=== PATIENT | male | born 1960 | race Caucasian/White ===

== ENCOUNTER 2024-05-20 12:02 | Inpatient (IN) | payer OTHER, SELFPAY ==
[2024-05-20 12:14] VITALS: BP 123/78; PULSE 62; RESP 16; TEMP 36.9; O2SAT 98; BMI 25.1
[2024-05-20 12:54] VITALS: RESP 14
[2024-05-20 12:59] LABS: Appearance Urine Clear; Color Urine Yellow; Glucose Urine UA Negative (Negative); Leukocyte Esterase Urine Trace (Negative); Nitrite Urine Negative (Negative); Specific Gravity - Urine 1.015 (1.005-1.025); UMIC TRIGGER UACC YES; Urine Blood Moderate (2+) (Negative); Urine Ketones Negative (Negative); Urine Protein Negative (Neg-Trace)
[2024-05-20 13:01] LABS: Bacteria Urine None Seen (None Seen); Hyaline Casts Urine 0-2 /LPF (0-2); RBC Urine >20 /HPF (0-2); Squamous Epithelial Cell Urine 0-2 /HPF (0-2); WBC Urine 0-5 /HPF (0-5)
--- NOTE | 2024-05-20 13:01 | PC.NURSE ---
Patient comes in via EMS on a section 12. Per EMS, patient was brought to the court today from [facility] to determine if he could be committed, the diving judge determined the patient could not be committed so he was subsequently discharged from [facility]. Pt was then placed on a section 12 for transport here because staff felt he was unsafe to be in the community. Patient is not alert and oriented, he was only oriented to his name, no this birthday, location or situation. he reports to this RN that Heide is his mother and that he travels to different places. Patient was agitated with staff upon arrival, yelling, demanding to talk on the phone, refusing to answer this RNs questions. Patient did willingly take 10mg IM Zyprexa in the left deltoid. Patient is now resting in his room, respirations even and unlabored, no apparent distress noted
[2024-05-20 13:12] LABS: Amphetamine Screen Urine Not Detected (Not Detect); Barbiturates, Urine Not Detected (Not Detect); Benzodiazepines Screen Urine Not Detected (Not Detect); Buprenorphine Scr Not Detected (Not Detect); Cannabinoid Screen Urine Not Detected (Not Detect); Cocaine Screen Urine Not Detected (Not Detect); Fentanyl, urine Not Detected (Not Detect); Methadone Screen, Urine Not Detected (Not Detect); Opiate Screen Urine Not Detected (Not Detect); Oxycodone Screen Urine Not Detected (Not Detect); Phencyclidine Screen Urine Not Detected (Not Detect)
[2024-05-20] MEDS: OLANZapine 10 MG VIAL IM (13:24)
--- NOTE | 2024-05-20 13:33 | ED.PSYCH ---
HPI - Psych General Chief Complaint: Psychiatric Symptoms Stated Complaint: section 12, uncooperative, confusion at BL, -SI/HI Time Seen by Provider: 05/20/24 12:19 Source: patient, EMS and RN notes reviewed Mode of arrival: EMS Limitations: no limitations History of Present Illness ED Provider: Trinh Thomas PA-C HPI Narrative: This is a 64-year-old male, with no reported past medical history, who presents emergency department from [facility] on section 12 via EMS with concerns for patient not being safe in the community by himself. Patient reports that he is unsure why he was here, patient reporting that he only wants to eat. He denies any current complaints. Denies any chest pain, shortness for breath, abdominal pain, nausea, vomiting or diarrhea. Per nursing report, it appears that patient was sectioned for 3 days through [facility], and went to court where it was not deemed that he needed to be on a section 12 anymore. Because of this reason, [facility] had to discharge him however upon leaving from the facility he was sectioned again, unclear where the section came from whether or not that was from [facility] or elsewhere. He has no SI, HI, auditory or visual hallucinations. HPI limited as patient does not report much of a history. He has no current complaints. History of same: Yes Related Data Home Medications ?Medication ?Instructions ?Recorded ?Confirmed No Known Home Meds 05/20/24 05/20/24 Allergies Allergy/AdvReac Type Severity Reaction Status Date / Time No Known Allergies Allergy Verified 05/20/24 12:21 Review of Systems Review of Systems: Yes all other systems are reviewed and are negative Constitutional: Constitutional: Reports as per [facility] Past Medical History Attestation statement: The following information was validated with the patient. Social History Social History Smoked in Last 30 Days: No Use of substances other than those prescribed or required for medical reasons: No Physical Exam Vital Signs: Vital Signs: Last Vital Signs Temp 98.4 F 05/20/24 12:14 Pulse 62 05/20/24 12:14 Resp 14 05/20/24 12:54 BP 123/78 05/20/24 12:14 Pulse Ox 98 05/20/24 12:14 O2 Del Method Room Air 05/20/24 12:14 BMI result Body Mass Index 25.1 Const: General: cooperative, comfortable and no acute distress Orientation/consciousness: patient oriented x3 Limitations: no limitations HEENT: Head: Yes normal to inspection, Yes normocephalic and Yes atraumatic Ears: hearing grossly normal bilaterally General nose exam: Normal external nose present Face and sinus: Yes normal facial exam Mouth: Normal oral and palatal mucosa present, oropharynx normal and moist mucous membranes Throat: Yes posterior oropharynx normal Eyes: General: appearance normal, both eyes and all related structures Eyelids: Yes eyelids normal Conjunctivae: conjunctivae normal Sclerae: sclerae normal Pupils: Equal, round and reactive pupils present EOM: EOMs intact bilaterally Neck: Neck: Yes normal visual inspection, Yes full ROM and Yes no lymphadenopathy Lymphatic: no lymphadenopathy noted Chest: Chest palpation & inspection: normal inspection of the chest Resp: Effort & Inspection: normal respiratory effort and able to speak in complete sentences Auscultation: clear to auscultation bilaterally, no crackles, no rales, no rhonchi and no wheezes Cardio: Rate: regular rate Rhythm: regular rhythm Heart sounds: S1 normal heart sound present and S2 normal heart sound present GI: Inspection: Yes normal to inspection Skin: General skin exam: no rashes or lesions noted Trauma: no lacerations or abrasions Wounds: no wounds Neuro: General: patient oriented x3 and moves all extremities Cranial nerves: Yes Equal, round and reactive pupils present Extrem: General: Yes normal to inspection Right upper extremity: normal to inspection Left upper extremity: normal to inspection Right lower extremity: normal to inspection Left lower extremity: normal to inspection Psych: Appearance: disheveled Speech and movement: Pressured speech present Affect: Hostile affect present and Irritable affect present Attitude: Avoids eye contact (attititude/behavior) and Refuses to answer (attititude/behavior) Thought process: Loose association thought process present Thought content: other (Unable to assess) Insight: Limited insight present (Psych) Judgement: Limited judgement present (Psych) Course Reevaluation(s) Reevaluation #1: Patient re-evaluated, feeling much better, given food, and he is alert and oriented x4. He appears drowsy, a continues to be a poor historian however no neurologic focal deficits on examination. Will obtain blood work, UA, we will continue to closely monitor overall workup and care team consult. Will try to get more information from Jean Paul in regards to his admission as it is unclear as patient is a poor historian in regards to this. Time: 14:44 Reevaluation #2: Sign out given to colleague, Paulette Drake pending med clearance and care team consult. Medications Administered Discontinued Medications Generic Name Dose Route Start Last Admin Trade Name Kortney PRN Reason Stop Dose Admin Olanzapine 10 mg 05/20/24 13:09 05/20/24 13:24 Olanzapine 10 Mg Vial IM 05/20/24 13:10 10 mg ONCE ONE Administration Medical Decision Making Medical Decision Making MDM Narrative: This is a 64-year-old male who presents emergency department via EMS on section 12. Patient recently discharged from your [place] however patient was discharged in the do not deem he was safe to be in the community by herself. Upon arrival, patient very agitated. Yelling, screaming at staff, agitated with staff, demanding to talk on the phone, refusing to answer questions. Not redirectable. He is very agitated, patient willing to take IM injection. Zyprexa 10 mg ordered. I personally went to assess patient, patient very hostile, refusing to answer my questions, agitated, yelling - we will medicate with Zyprexa and re-evaluate. Differential Diagnosis Differential Diagnoses: The differential diagnosis associated with the presentation includes Admission/Observation Consideration of admission/observation: Escalation of care including admission/observation considered Lab Data [facility] Lab Attestation statement: I reviewed the patient's lab results. Labs: Lab Results 05/20/24 Range/Units 12:51 Urine Color Yellow Urine Appearance Clear Urine pH 7.0 (5.0-9.0) Ur Specific [place] 1.015 (1.005-1.025) Urine Protein Negative (Neg-Trace) mg/dL Urine Glucose (UA) Negative (Negative) mg/dL Urine Ketones Negative (Negative) mg/dL Urine Blood Moderate (2+) H (Negative) Urine Nitrite Negative (Negative) Ur Leukocyte Esterase Trace H (Negative) Urine RBC >20 H (0-2) /HPF Urine WBC 0-5 (0-5) /HPF Ur Squamous Epith Cells 0-2 (0-2) /HPF Urine Bacteria None Seen (None Seen) Hyaline Casts 0-2 (0-2) /LPF Urine Opiates Screen Not Detected (Not Detect) Ur Buprenorphine Scrn Not Detected (Not Detect) ng/mL Ur Oxycodone Screen Not Detected (Not Detect) ng/mL Urine Methadone Screen Not Detected (Not Detect) ng/mL Urine Fentanyl Screen Not Detected (Not Detect) Ur Barbiturates Screen Not Detected (Not Detect) Ur Phencyclidine Scrn Not Detected (Not Detect) Ur Amphetamines Screen Not Detected (Not Detect) U Benzodiazepines Scrn Not Detected (Not Detect) Urine Cocaine Screen Not Detected (Not Detect) U Marijuana (THC) Screen Not Detected (Not Detect) Radiology Impression Discussion of test interpretation with radiology: I have reviewed the radiologist's reading. External Record Review External record reviewed: Inpatient record, Office record, Outpatient record, Prior outpatient labs, Prior outpatient radiology, Primary care record and Outside ED record Discharge Plan Discharge Clinical Impression: Agitation Patient Disposition: Still a Patient Prescriptions: No Action No Known Home Meds Interventions: [place]-Suicide Risk Severity Scale Last Done: 05/20/24 12:54
--- NOTE | 2024-05-20 17:36 | MHC.CARE ---
Patient not able to engage in evaluation with the CARE Team, he will remain in the ED and be reassessed when more alert and more collateral information is available to reach a disposition. ED provider ANNA Barrera updated
[2024-05-20 23:11] VITALS: BP 132/85; PULSE 73; RESP 20; O2SAT 97
--- NOTE | 2024-05-20 23:37 | MHC.EDTECH ---
pt refusing lab work. stating t/w is apart of the jfk assasination and you won't take my fucking blood. rn aware.
[2024-05-21 00:15] VITALS: RESP 18
[2024-05-21] MEDS: diphenhydrAMINE HCL 50 MG/ML VIAL IM (00:15)
[2024-05-21] MEDS: LORazepam 2 MG/ML VIAL IM (00:15)
[2024-05-21] MEDS: Haloperidol Lactate 5 MG/ML VIAL IM (00:15)
[2024-05-21 00:30] VITALS: RESP 16
--- NOTE | 2024-05-21 00:41 | PC.NURSE ---
Patient is paranoid, disruptive, consistently making SI/HI statement, when directed patient made assaultive gesture, threatening staff member, provider notified/ordered Ativan 2 mg IM, Benadryl 50 mg IM, and Haldol 5 mg IM administered as ordered.., at 0015. Refused lab and vital sign assessment. Refused PO medication prior to IM medication. will continue to monitor on 1:1 until 011.
[2024-05-21 00:45] VITALS: RESP 16
[2024-05-21 01:00] VITALS: RESP 16
[2024-05-21 01:15] VITALS: RESP 16
--- NOTE | 2024-05-21 06:22 | PC.NURSE ---
Patient slept through the night, no distress observed/reported, thought content paranoid/thought process non sensical, refused vital sign assessment, refused blood work, pending care team assessment, will continue to monitor
[2024-05-21 09:39] VITALS: BP 126/83; PULSE 94; RESP 16; TEMP 36.6; O2SAT 98
--- NOTE | 2024-05-21 09:47 | MHC.EDTECH ---
Patient refusing blood work at this time. RN aware
--- NOTE | 2024-05-21 11:24 | MHC.EDTECH ---
Patient refusing EKG at this time. RN aware.
--- NOTE | 2024-05-21 11:27 | PC.NURSE ---
patient continues to refuse labs, ekg. refusing to speak with care team. occasionally yelling out at staff, redirected back to room
--- NOTE | 2024-05-21 12:40 | MHC.CARE ---
Pt meets the criteria for IPLOC. Section 12a in chart. Provider in agreement.
--- NOTE | 2024-05-21 12:50 | PC.NURSE ---
spoke with Stella Anne from [employer] ([phone]) who are stating that patient has been making multiple phone calls to their department. states that this has been an issue since patient was at [facility] and was making approx 30-40 calls over at 10 days period.
--- NOTE | 2024-05-21 15:20 | MHC.CARE ---
Patient did give CARE clinican the phone number for a sister, Stephanie/ Nazanin Arrington [phone]. A VM was left with no PHI, requesting call back
--- NOTE | 2024-05-21 19:43 | PC.NURSE ---
ambulating independently to restroom makes disconnected statements like yvette asks for snacks
--- NOTE | 2024-05-21 21:06 | PC.NURSE ---
apparently client has been calling police dept multiple times and t/w was unaware. phone turned off
--- NOTE | 2024-05-21 21:16 | MHC.EDTECH ---
pt continues to refuse lab work and EKG. RN AWARE.
--- NOTE | 2024-05-21 21:52 | PC.NURSE ---
patient comes up to nurse station talk about vampires and porn random tangtial topics, not about war at all
--- NOTE | 2024-05-21 22:10 | PHA.MEDREC ---
Addendum entered by Yessica Boyd 05/22/24 14:21: Following up from last nig. I Made Multiple attempts to get med list from [facility] with no luck. [facility] keeps transferring me around and then go's straight to voice mail. Original Note: Pharmacy Consult ? Medication Reconciliation Pharmacy attempted to complete med rec. I faxed and called [facility] many times tonight and got no call or fax back from them. Will have Am team try to follow up in the morning..
--- NOTE | 2024-05-21 22:36 | PC.NURSE ---
patient comes up and approaches nursing station with sexualized word charito, t/w redirected client and stopped responding to client
--- NOTE | 2024-05-21 23:38 | PC.NURSE ---
freq approaches nurses station asking for snacks and tea, 50 percent of the time segues into sexualized comments
--- NOTE | 2024-05-22 00:45 | PC.NURSE ---
redirected to bed but still appears restless
--- NOTE | 2024-05-22 02:09 | PC.NURSE ---
even though t/w attempted to set limits client came out and asked for juice, ice, paper towels, rambled a bit, was given these items and saltines, when he changed his mind t/w asked him to come back later.
[2024-05-22 06:02] VITALS: RESP 16
--- NOTE | 2024-05-22 07:50 | PC.NURSE ---
ASSUMED CARE OF PT. REFUSING VS AT THIS TIME. APPEARS IN NAD. ATE BREAKFAST THIS AM. SPEECH TANGENTIAL, DISORGANIZED.
[2024-05-22 13:50] VITALS: BP 155/78; PULSE 78; RESP 18; O2SAT 98
--- NOTE | 2024-05-22 14:43 | PC.NURSE ---
pt refused flu vaccine and tobacco screen at this time
--- NOTE | 2024-05-22 14:44 | PC.NURSE ---
pt refused labs, provider aware
--- NOTE | 2024-05-22 15:26 | PC.ADMIT ---
Jeanie is a 64-year-old male admitted from [facility] to [facility] on a 12b up on Saturday 05/27. Pt was sent to [facility] by ambulance from outside [facility] due to ?aggression, physical harm to self, nonsensical thinking, inability to care for self.? Diagnosis is unknown at this time. Upon arrival to ED on 05/21/24, pt was agitated, uncooperative and difficult to redirect, he accepted a chemical restraint. Per crisis eval, [facility] felt that he was unsafe in the community after a 72-hour hold. He was brought before a judge's clerk who determined he was clear to be discharged. [facility] was concerned about his mental health and his ability to stay safe in the community and called 911 who transported him to [facility] Upon arrival to [facility], pt was loud, tangential, difficult to redirect. Speech was nonsensical, pt was also religiously preoccupied and would repeatedly recite prayers out loud. Pt would also make sexual statements about pornography. Pt initially refused a skin check but ultimately allowed for it after security was called. Thought process is disorganized, concentration is poor. Pt refused to fill out menus or participate in admission assessment. Pt refused to leave the kitchen area because ?I need to stay where the cameras are rolling 01/10.? Pt stated ?I?m not mentally ill, I don?t need to be here. I?m not saying anything unless a licensed psychologist or a fitness teacher is present.? Pt placed on 15 minute safety checks.
--- NOTE | 2024-05-22 16:13 | P.HPPS_ITS ---
HPI Date of Service: 05/22/24 Chief Complaint: psychosis HPI Narrative: pt not cooperative with evaluation, pressured speech, talking over MD's attempts to engage, demanding MD be quiet and listen to him. also stated he would not speak with this sign writer hand without a glove cleaner present and he was invoking his 5th amendment right to not incriminate himself. history is taken from chart. per CARE team marissa, pt was BIBA on 12a, sent from [facility]. per report pt was hospitalized there but electron microscopist denied section 7/8 petition so patient was discharged. however, staff were sufficiently concerned about his safety that upon discharge he was immediately section 12ed to [facility]. per 12a: aggression, physical harm to self, nonsensical thinking,...inability to care for self. in [facility] pt was agitated, uncooperative, difficult to redirect; he accepted some medication for agitation in the ED. per CARE team marissa, pt displayed bizarre, labile, erratic behavior which was threatening (screaming at staff, get out! get out! upon attempted interview). pt is from [facility]; apparently numerous attempts were made by CARE team to obtain collateral from providers in [facility] with little success. Past Psychiatric History: evidently psychotic/manic disorder, pt denies mental illness discharged from [facility] 05/20/24 Medical Evaluation Reviewed: Yes PMFSH Family History: unknown Social History: reports sister, uncle. unclear if delusional. Substance History: utox NEG Trauma History: unknown Diagnostics Vital Signs (24Hr): Vital Signs - 24 hr 05/22/24 06:02 05/22/24 13:50 Pulse Rate 78 Respiratory Rate 16 18 Blood Pressure 155/78 H Pulse Oximetry 98 Oxygen Delivery Method Room Air BMI result Body Mass Index 25.1 Meds/Allergies Meds Home Medications ?Medication ?Instructions ?Recorded ?Confirmed ?Type No Known Home Meds 05/20/24 05/20/24 History Allergies Allergies Allergy/AdvReac Type Severity Reaction Status Date / Time No Known Allergies Allergy Verified 05/20/24 12:21 Mental Status Exam Mental Status Exam Narrative: seated in milieu, declines to come to interview room. asserts his 5th amendment rights. large frame, hospital [facility]. adequately groomed. receptive to MD's presence, not cooperative to interview. PMA of constant speech and hand/arm gesticulations. speech incr rate, amount, loudness. nml tone, decr latency. not interruptible. thoughts tangential, digressive, delusional, disorganized. affect constricted, hyper-intense, mod-labile (irritable). mood not assessed. no SI/HI/AVH expressed. Assessment & Plan Assessment & Plan (1) Urszula: Status: Acute Code(s): F30.9 - Manic episode, unspecified Plan offer mood stabilizing and anti-psychotic medication. attempt to collect collateral. assess for dangerousness. Patient educated on: other Reason for continued inpatient stay Substantial Risk for: harm to self, harm to others and inability to function Statement Statement: I have reviewed the history and physical and performed a pertinent examination on my patient. No changes have occurred unless specified. If the History and Physical was not performed prior to admission, the Hospitalist's service will be consulted for completing the admission physical. Time Spent With Patient Time: Total time managing care of this patient today __35__ minutes.
[2024-05-22 19:30] VITALS: BP 124/76; PULSE 72; RESP 16; O2SAT 98
--- NOTE | 2024-05-23 09:01 | P.PNPSI_ITS ---
Subjective Subjective Date of Service: 05/23/24 Reason For Visit: psychosis [facility] presents with loud, pressured speech. tangential. disorganized. religiously preoccupied. observed responding to internal stimuli. refusing medications. Focused on Slyvester Stallone and Thanksgiving; difficult to follow conversation. Medication Compliance: No Attending Groups: No Mental Status Exam Mental Status Exam Patient Appearance: Disheveled Level of Consciousness: Awake Patient Behavior: Restless Mood Description: Labile Affect Description: Labile Speech Pattern: Rambling, Rapid, Loud and Pressured Hallucinations: Auditory Delusions: Paranoid Ideation Thought Process: Incoherent Thought Content: positive for Flight of Ideas, positive for Tangential and positive for Disorganized Diagnostics Vital Signs (24Hr): Vital Signs - 24 hr 05/22/24 13:50 05/22/24 19:30 Pulse Rate 78 72 Respiratory Rate 18 16 Blood Pressure 155/78 H 124/76 Pulse Oximetry 98 98 Oxygen Delivery Method Room Air Room Air BMI result Body Mass Index 25.1 Medications Medications Current Medications Acetaminophen (Acetaminophen 325 Mg Tablet) 650 mg PO Q6H PRN PRN Reason: Headache/Pain, Scale 1-10 Al Hydroxide/Mg Hydroxide (Magnesium Hydrox/Alum Hydrox 30 Ml Oral.Susp) 30 ml PO Q6H PRN PRN Reason: Heartburn/Nausea Hydroxyzine HCl (Hydroxyzine Hcl 25 Mg Tablet) 25 mg PO Q6H PRN PRN Reason: mild anxiety [place] Carbonate ([place] Carbonate Er 300 Mg Tablet.Er) 600 mg PO BID [facility] Last Admin: 05/22/24 23:08 Dose: Not Given Magnesium Hydroxide (Milk Of Magnesia 30 Ml Oral.Susp) 30 ml PO DAILY PRN PRN Reason: Constipation Nicotine Polacrilex (Nicotine Polacrilex 2 Mg Gum) 4 mg BUCCAL Q2H PRN PRN Reason: Nicotine Cravings Olanzapine (Olanzapine Odt 10 Mg Tab.Rapdis) 20 mg TRANSLINGU BEDTIME [facility] Last Admin: 05/22/24 23:09 Dose: Not Given Olanzapine (Olanzapine Odt 10 Mg Tab.Rapdis) 10 mg TRANSLINGU Q4H PRN PRN Reason: agitation Allergies Allergies Allergy/AdvReac Type Severity Reaction Status Date / Time No Known Allergies Allergy Verified 05/20/24 12:21 Assessment & Plan Assessment & Plan (1) Urszula: Status: Acute Code(s): F30.9 - Manic episode, unspecified Plan offer mood stabilizing and anti-psychotic medication. attempt to collect collateral. assess for dangerousness. 05/23: Sitting out in [place]. presents with loud, pressured speech. tangential. disorganized. religiously preoccupied. observed responding to internal stimuli. refusing medications. Focused on Slyvester Stallone and Thanksgiving; difficult to follow conversation. Encourage medication compliance. Reason for continued inpatient stay Substantial Risk for: med/psych decompensation Time Spent With Patient Time: Total time managing care of this patient today _10___ minutes.
[2024-05-23 20:29] VITALS: RESP 18
[2024-05-24 08:00] VITALS: RESP 16
--- NOTE | 2024-05-24 08:57 | HO.PSYCHPN ---
Subjective Subjective Date of Service: 05/24/24 Reason For Visit: psychosis Subjective Notes: Section 12B Interim History: Sitting out in mileu. showered. observed responding to internal stimuli. refusing medications. Declined to meet with T/W; pt stated, all of you murdered my mother! , then proceeded to walk away. Medication Compliance: No Attending Groups: No Mental Status Exam Mental Status Exam Patient Appearance: Disheveled Patient Orientation: Person, Place, Time and Situation Level of Consciousness: Awake Patient Behavior: Guarded, Suspicious and Uncooperative Mood Description: Labile Affect Description: Labile Speech Pattern: Rambling, Rapid, Loud and Pressured Hallucinations: Auditory Delusions: Paranoid Ideation Thought Process: Illogical Thought Content: positive for Tangential Diagnostics Vital Signs (24Hr): Vital Signs - 24 hr 05/23/24 20:29 05/24/24 08:00 Respiratory Rate 18 16 BMI result Body Mass Index 25.1 Medications Medications Current Medications Acetaminophen (Acetaminophen 325 Mg Tablet) 650 mg PO Q6H PRN PRN Reason: Headache/Pain, Scale 1-10 Al Hydroxide/Mg Hydroxide (Magnesium Hydrox/Alum Hydrox 30 Ml Oral.Susp) 30 ml PO Q6H PRN PRN Reason: Heartburn/Nausea Hydroxyzine HCl (Hydroxyzine Hcl 25 Mg Tablet) 25 mg PO Q6H PRN PRN Reason: mild anxiety [place] Carbonate ([place] Carbonate Er 300 Mg Tablet.Er) 600 mg PO BID [facility] Last Admin: 05/23/24 21:53 Dose: Not Given Magnesium Hydroxide (Milk Of Magnesia 30 Ml Oral.Susp) 30 ml PO DAILY PRN PRN Reason: Constipation Nicotine Polacrilex (Nicotine Polacrilex 2 Mg Gum) 4 mg BUCCAL Q2H PRN PRN Reason: Nicotine Cravings Olanzapine (Olanzapine Odt 10 Mg Tab.Rapdis) 20 mg TRANSLINGU BEDTIME [facility] Last Admin: 05/23/24 21:53 Dose: Not Given Olanzapine (Olanzapine Odt 10 Mg Tab.Rapdis) 10 mg TRANSLINGU Q4H PRN PRN Reason: agitation Allergies Allergies Allergy/AdvReac Type Severity Reaction Status Date / Time No Known Allergies Allergy Verified 05/20/24 12:21 Assessment & Plan Assessment & Plan (1) Urszula: Status: Acute Code(s): F30.9 - Manic episode, unspecified Plan offer mood stabilizing and anti-psychotic medication. attempt to collect collateral. assess for dangerousness. 05/23: Sitting out in mileu. presents with loud, pressured speech. tangential. disorganized. religiously preoccupied. observed responding to internal stimuli. refusing medications. Focused on Slyvester Stallone and Thanksgiving; difficult to follow conversation. Encourage medication compliance. 05/24: Sitting out in mileu. showered. observed responding to internal stimuli. refusing medications. Declined to meet with T/W; pt stated, all of you murdered my mother! , then proceeded to walk away. continue tx plan. Reason for continued inpatient stay Substantial Risk for: med/psych decompensation Time Spent With Patient Time: Total time managing care of this patient today _10___ minutes.
[2024-05-24 20:00] VITALS: BP 157/95; PULSE 91; RESP 16; O2SAT 98
--- NOTE | 2024-05-25 00:29 | PC.NURSE ---
At around 2200, patient attenpted to lock himself and a female staff member in the kitchen. Patient was redirected not to do that.
--- NOTE | 2024-05-25 14:58 | HO.PSYCHPN ---
Subjective Subjective Date of Service: 05/25/24 Reason For Visit: psychosis Interim History: Observed responding to internal stimuli. refusing medications. tangential. Loud speech. When T/W attempted to discuss treatment, pt stated, my sister is coming here with a canvas cutter hand and a licensed psychologist. Leave me alone in the name of God . Medication Compliance: No Attending Groups: No Mental Status Exam Mental Status Exam Patient Appearance: Appropriate Patient Orientation: Person, Place, Time and Situation Level of Consciousness: Awake Patient Behavior: Guarded, Suspicious and Uncooperative Mood Description: Labile Affect Description: Labile Ability to Follow Directions: Good Speech Pattern: Rambling, Rapid and Loud Hallucinations: Auditory Thought Process: Illogical Thought Content: positive for Flight of Ideas and positive for Tangential Diagnostics Vital Signs (24Hr): Vital Signs - 24 hr 05/24/24 20:00 Pulse Rate 91 Respiratory Rate 16 Blood Pressure 157/95 H Pulse Oximetry 98 Oxygen Delivery Method Room Air BMI result Body Mass Index 25.1 Medications Medications Current Medications Acetaminophen (Acetaminophen 325 Mg Tablet) 650 mg PO Q6H PRN PRN Reason: Headache/Pain, Scale 1-10 Al Hydroxide/Mg Hydroxide (Magnesium Hydrox/Alum Hydrox 30 Ml Oral.Susp) 30 ml PO Q6H PRN PRN Reason: Heartburn/Nausea Hydroxyzine HCl (Hydroxyzine Hcl 25 Mg Tablet) 25 mg PO Q6H PRN PRN Reason: mild anxiety [place] Carbonate ([place] Carbonate Er 300 Mg Tablet.Er) 600 mg PO BID [facility] Last Admin: 05/25/24 09:31 Dose: Not Given Magnesium Hydroxide (Milk Of Magnesia 30 Ml Oral.Susp) 30 ml PO DAILY PRN PRN Reason: Constipation Nicotine Polacrilex (Nicotine Polacrilex 2 Mg Gum) 4 mg BUCCAL Q2H PRN PRN Reason: Nicotine Cravings Olanzapine (Olanzapine Odt 10 Mg Tab.Rapdis) 20 mg TRANSLINGU BEDTIME [facility] Last Admin: 05/24/24 22:32 Dose: Not Given Olanzapine (Olanzapine Odt 10 Mg Tab.Rapdis) 10 mg TRANSLINGU Q4H PRN PRN Reason: agitation Allergies Allergies Allergy/AdvReac Type Severity Reaction Status Date / Time No Known Allergies Allergy Verified 05/20/24 12:21 Assessment & Plan Assessment & Plan (1) Urszula: Status: Acute Code(s): F30.9 - Manic episode, unspecified Plan offer mood stabilizing and anti-psychotic medication. attempt to collect collateral. assess for dangerousness. 05/23: Sitting out in mileu. presents with loud, pressured speech. tangential. disorganized. religiously preoccupied. observed responding to internal stimuli. refusing medications. Focused on Slyvester Stallone and Thanksgiving; difficult to follow conversation. Encourage medication compliance. 05/24: Sitting out in mileu. showered. observed responding to internal stimuli. refusing medications. Declined to meet with T/W; pt stated, all of you murdered my mother! , then proceeded to walk away. continue tx plan. 05/25: refusing medications. tangential. When T/W attempted to discuss treatment, pt stated, my sister is coming here with a canvas cutter hand and a licensed psychologist. Leave me alone in the name of God . Continue to encourage medications. Patient educated on: medication risk/benefits Reason for continued inpatient stay Substantial Risk for: med/psych decompensation Time Spent With Patient Time: Total time managing care of this patient today _10___ minutes.
[2024-05-25 20:00] VITALS: BP 122/79; PULSE 67; RESP 16; TEMP 36.6; O2SAT 96
--- NOTE | 2024-05-25 21:09 | PC.NURSE ---
Pt refused HS [place] 600mg and Zyprexa 20mg at 2100
--- NOTE | 2024-05-25 22:47 | PC.NURSE ---
Pt was visible in the common areas, delusional, disorganized, paranoid and talkative. He refused HS meds at 2100. He was redirected often for being sexually inappropriate towards female peers/staff and trying to strip off his cloths. Pt was observed to be responding to internal stimuli, self dialoguing, talking and laughing loud on the hallway. He is difficult to engage/understand and needs frequent redirections.
--- NOTE | 2024-05-26 14:28 | HO.PSYCHPN ---
Subjective Subjective Date of Service: 05/26/24 Reason For Visit: psychosis Interim History: no change in presentation. pressured, disorganized stories along with, i refuse to speak with you without my assistant district attorney present. informed he would discharge tomorrow. per staff, 12b up tomorrow. told staff, get away from me. denies all Sx. eating well. loud self-dialoguing. stripping off clothes in milieu ( i wanna be a [employer] dancer ), but redirectable. Mental Status Exam Mental Status Exam Patient Appearance: Appropriate Patient Orientation: Person, Place, Time and Situation Level of Consciousness: Awake Patient Behavior: Guarded, Suspicious and Uncooperative Mood Description: Labile Affect Description: Labile Ability to Follow Directions: Good Speech Pattern: Rambling, Rapid and Loud Hallucinations: Auditory Thought Process: Illogical Thought Content: positive for Flight of Ideas and positive for Tangential Diagnostics Vital Signs (24Hr): Vital Signs - 24 hr 05/25/24 20:00 Temperature 98 F Pulse Rate 67 Respiratory Rate 16 Blood Pressure 122/79 Pulse Oximetry 96 Oxygen Delivery Method Room Air BMI result Body Mass Index 25.1 Medications Medications Current Medications Acetaminophen (Acetaminophen 325 Mg Tablet) 650 mg PO Q6H PRN PRN Reason: Headache/Pain, Scale 1-10 Al Hydroxide/Mg Hydroxide (Magnesium Hydrox/Alum Hydrox 30 Ml Oral.Susp) 30 ml PO Q6H PRN PRN Reason: Heartburn/Nausea Hydroxyzine HCl (Hydroxyzine Hcl 25 Mg Tablet) 25 mg PO Q6H PRN PRN Reason: mild anxiety [place] Carbonate ([place] Carbonate Er 300 Mg Tablet.Er) 600 mg PO BID [facility] Last Admin: 05/26/24 08:29 Dose: Not Given Magnesium Hydroxide (Milk Of Magnesia 30 Ml Oral.Susp) 30 ml PO DAILY PRN PRN Reason: Constipation Nicotine Polacrilex (Nicotine Polacrilex 2 Mg Gum) 4 mg BUCCAL Q2H PRN PRN Reason: Nicotine Cravings Olanzapine (Olanzapine Odt 10 Mg Tab.Rapdis) 20 mg TRANSLINGU BEDTIME [facility] Last Admin: 05/25/24 21:08 Dose: Not Given Olanzapine (Olanzapine Odt 10 Mg Tab.Rapdis) 10 mg TRANSLINGU Q4H PRN PRN Reason: agitation Allergies Allergies Allergy/AdvReac Type Severity Reaction Status Date / Time No Known Allergies Allergy Verified 05/20/24 12:21 Assessment & Plan Assessment & Plan (1) Urszula: Status: Acute Code(s): F30.9 - Manic episode, unspecified Plan 05/22: offer mood stabilizing and anti-psychotic medication. attempt to collect collateral. assess for dangerousness. 05/23: Sitting out in mileu. presents with loud, pressured speech. tangential. disorganized. religiously preoccupied. observed responding to internal stimuli. refusing medications. Focused on Slyvester Stallone and Thanksgiving; difficult to follow conversation. Encourage medication compliance. 05/24: Sitting out in mileu. showered. observed responding to internal stimuli. refusing medications. Declined to meet with T/W; pt stated, all of you murdered my mother! , then proceeded to walk away. continue tx plan. 05/25: refusing medications. tangential. When T/W attempted to discuss treatment, pt stated, my sister is coming here with a wafer machine operator and a licensed psychologist. Leave me alone in the name of God . Continue to encourage medications. 05/26: stable presentation. severely mentally ill, no particularly dangerous behaviors. 12b up tomorrow, planning to discharge tomorrow. refusing medications. Reason for continued inpatient stay Substantial Risk for: inability to function Time Spent With Patient Time: Total time managing care of this patient today ____ minutes.
--- NOTE | 2024-05-27 08:30 | P.DS_ITS ---
DS: Providers Provider Date of Service: 05/27/24 Date of admission: 05/22/24 13:14 Date of discharge: 05/27/24 Primary care physician: William Larios MD DS: Diagnosis Discharge Diagnosis (1) Urszula: Status: Acute DS: Medications Discharge Medications Home Medications: Home Medications ?Medication ?Instructions ?Recorded ?Confirmed No Known Home Meds 05/20/24 05/20/24 Mental Status Exam Mental Status Exam Patient Appearance: Appropriate Patient Orientation: Person, Place, Time and Situation Level of Consciousness: Awake Patient Behavior: Guarded, Suspicious and Uncooperative Mood Description: Labile Affect Description: Labile Ability to Follow Directions: Good Speech Pattern: Rambling, Rapid and Loud Hallucinations: Auditory Thought Process: Illogical Thought Content: positive for Flight of Ideas and positive for Tangential Data Data Completed and Pending Completed studies during hospitalization [Text1]: 05/20/24 12:51 Urine Color Yellow Urine Appearance Clear Urine pH 7.0 Ur Specific [place] 1.015 Urine Protein Negative Urine Glucose (UA) Negative Urine Ketones Negative Urine Blood Moderate (2+) H Urine Nitrite Negative Ur Leukocyte Esterase Trace H Urine RBC >20 H Urine WBC 0-5 Ur Squamous Epith Cells 0-2 Urine Bacteria None Seen Hyaline Casts 0-2 Urine Opiates Screen Not Detected Ur Buprenorphine Scrn Not Detected Ur Oxycodone Screen Not Detected Urine Methadone Screen Not Detected Urine Fentanyl Screen Not Detected Ur Barbiturates Screen Not Detected Ur Phencyclidine Scrn Not Detected Ur Amphetamines Screen Not Detected U Benzodiazepines Scrn Not Detected Urine Cocaine Screen Not Detected U Marijuana (THC) Screen Not Detected DS: Summary Hospital Course Hospital Course: per 05/22 admission note: HPI Narrative: pt not cooperative with evaluation, pressured speech, talking over MD's attempts to engage, demanding MD be quiet and listen to him. also stated he would not speak with this customs entry writer without a audio director present and he was invoking his 5th amendment right to not incriminate himself. history is taken from chart. per CARE team marissa, pt was BIBA on 12a, sent from [facility]. per report pt was hospitalized there but profiler denied section 7/8 petition so patient was discharged. however, staff were sufficiently concerned about his safety that upon discharge he was immediately section 12ed to [facility]. per 12a: aggression, physical harm to self, nonsensical thinking,...inability to care for self. in [facility] ED pt was agitated, uncooperative, difficult to redirect; he accepted some medication for agitation in the ED. per CARE team eval, pt displayed bizarre, labile, erratic behavior which was threatening (screaming at staff, get out! get out! upon attempted interview). pt is from [facility]; apparently numerous attempts were made by CARE team to obtain collateral from providers in [facility] with little success. Past Psychiatric History: evidently psychotic/manic disorder, pt denies mental illness discharged from [facility] 05/20/24 Medical Evaluation Reviewed: Yes [facility] Family History: unknown Social History: reports sister, uncle. unclear if delusional. Substance History: utox NEG Trauma History: unknown Precis: 05/22: offer mood stabilizing and anti-psychotic medication. attempt to collect collateral. assess for dangerousness. 05/23: Sitting out in mileu. presents with loud, pressured speech. tangential. disorganized. religiously preoccupied. observed responding to internal stimuli. refusing medications. Focused on Slyvester Stallone and Thanksgiving; difficult to follow conversation. Encourage medication compliance. 05/24: Sitting out in mileu. showered. observed responding to internal stimuli. refusing medications. Declined to meet with T/W; pt stated, all of you murdered my mother! , then proceeded to walk away. continue tx plan. 05/25: refusing medications. tangential. When T/W attempted to discuss treatment, pt stated, my sister is coming here with a audio director and a licensed psychologist. Leave me alone in the name of God . Continue to encourage medications. 05/26: stable presentation. severely mentally ill, no particularly dangerous behaviors. 12b up tomorrow, planning to discharge tomorrow. refusing medications. 05/27: no change in presentation. does not warrant commitment. discharge today per pt preference. refusing medications. Time Spent with Patient Time attestation: Total time managing care of this patient today _20___ minutes. Discharge Plan Discharge Anticipated Discharge Date/Time: 05/27/24 11:00 Patient Disposition: Penitentiary Discharge Diagnosis: Manic Episode Referrals: William Larios MD [Primary Care Provider] - 1 Week Discharge Medications: No Action No Known Home Meds Discharge Orders: Discharge Order (Routine); Ordered 05/27/24 Ordered By: Chetan Rodríguez Diet: Advance to usual diet Activity on Discharge: As tolerated Stand Alone Forms: Patient Portal Discharge page, Community Support Print Language: Tajik Care Plan Goals: achieve stability in the outpatient treatment setting Health Concerns: none Plan of Treatment: engage in outpatient services Assessment: not at imminent risk of serious harm to self or others
== END 2024-05-27 09:22 | disposition home or self-care (01) | DRG 753 ==
LOC: HO.ED 05-22 08:41 → HO.PADLT16 05-22 13:19
PROVIDERS: Physician Assistant Medical; Admitting Provider Psychiatry & Neurology Psychiatry; Emergency Provider Emergency Medicine Emergency Medical Services; PCP Internal Medicine; Visit Provider Psychiatry & Neurology Psychiatry
DX: F30.9 Manic episode, unspecified (principal)
CPT/HCPCS: 80307; 81001; 99285; J1200; J1630; J2060; J2359; S9485

== ENCOUNTER → 2024-05-22 13:14 | Outpatient (BNV) | payer OTHER, SELFPAY | PROVIDERS: Admitting Provider Psychiatry & Neurology Psychiatry; Emergency Provider Emergency Medicine Emergency Medical Services; PCP Internal Medicine; Visit Provider Psychiatry & Neurology Psychiatry | DX: F30.9 Manic episode, unspecified (principal) | CPT/HCPCS: 90792; 99231; 99238 ==